=== PATIENT | female | born 1960 | race Caucasian/White ===

== ENCOUNTER → 2018-03-15 | Outpatient (CLI) | payer OTHER ==
[~2018-03-15] MED LIST: AMOXICILLIN875 MG PO; ATIVAN0.5 MG; HYDROCODONE-ACE15 ML PO; LEVOTHYROXIN0.125 M1; LIPITOR40 MG PO; PREDNISONE50 MG PO; TRIPLEX
== END ==
LOC: RAD 15:23
DX: J18.1 Lobar pneumonia, unspecified organism (principal); J47.0 Bronchiectasis with acute lower respiratory infection; R91.8 Other nonspecific abnormal finding of lung field

== ENCOUNTER → 2018-04-07 | Outpatient (CLI) | payer OTHER | LOC: CAT 13:59 | DX: J47.9 Bronchiectasis, uncomplicated (principal); J43.8 Other emphysema; J47.0 Bronchiectasis with acute lower respiratory infection; R91.8 Other nonspecific abnormal finding of lung field ==

== ENCOUNTER → 2019-02-14 | Outpatient (CLI) | payer OTHER | LOC: RAD 09:12 | DX: R05 Cough (principal) ==